=== PATIENT | male | born 1980 | race American Indian/Alaskan Native ===

== ENCOUNTER 2021-04-23 04:32 | Emergency (ER) | payer SELFPAY ==
[2021-04-23 04:39] VITALS: BP 108/45
[2021-04-23] MEDS ORDERED: LIDOCAINE-MPF (1%) 10 MG/1 ML VIAL 5 ML INFILTRATI ONE (04:53)
[2021-04-23] MEDS ORDERED: IBUPROFEN 600 MG TAB PO ONE (04:53)
--- NOTE | 2021-04-23 05:15 | Emergency Department Report ---
ED Extremity Problem HPI - General Chief complaint: Extremity Problem,Nontraumatic Stated complaint: LEFT INDEX FINGER INFECTION Source: patient Mode of arrival: Ambulatory Limitations: No Limitations - History of Present Illness Initial comments: Patient is a 41-year-old -Central [place] male with no past medical history presents to the ED with complaint of acute onset persistent painful swollen mild erythematous maculopapular rash on dorsal left index finger around a small puncture wound he sustained 1 week ago after a metallic object pierced through his dorsal left index finger. Patient states that he did not come to the hospital because he thought he was going to heal but in the last 2 days the pain and swelling of worsened. Patient denies dizziness, syncope, fever, chills, nausea and vomiting, numbness and tingling or weakness of left hand or left index finger. MD Complaint: extremity pain (left index finger pain and swelling), joint swelling (right index finger pain and swelling) -: Sudden, week(s) (1) Location: left, upper extremity (dorsal left index finger pain and swelling ) History of Same: No -: No myalgia, No arthralgia, No fever, No associated dyspnea, No associated chest pain Radiation: proximal Severity scale (0 -10): 8 Quality: aching, sharp Consistency: constant Improves with: nothing Worsens with: weight bearing, palpation Associated Symptoms: denies other symptoms, rash (Swollen, painful, erythematous maculopapular rash on dorsal left index finger following a puncture wound a week ago). denies: chest pain, shortness of breath, fever, myalgias, arthralgias - Related Data Previous Rx's Medication Instructions Recorded Last Taken Type Ibuprofen [Motrin] 800 mg PO Q8HR PRN #30 tablet 04/23/21 Unknown Rx Sulfamethoxazole/Trimethoprim 1 each PO Q12H #20 04/23/21 Unknown Rx [Bactrim DS TAB] Allergies Allergy/AdvReac Type Severity Reaction Status Date / Time No Known Allergies Allergy Unverified 04/23/21 04:36 ED Review of Systems ROS: Stated complaint: LEFT INDEX FINGER INFECTION Other details as noted in HPI Constitutional: denies: chills, fever Eyes: denies: eye pain, eye discharge, vision change ENT: denies: ear pain, throat pain Respiratory: denies: cough, shortness of breath, wheezing Cardiovascular: denies: chest pain, palpitations Endocrine: no symptoms reported Gastrointestinal: denies: abdominal pain, nausea, vomiting, diarrhea Genitourinary: denies: urgency, dysuria Musculoskeletal: arthralgia (Left index finger pain and swelling due to a mild erythematous maculopapular rash). denies: back pain, joint swelling Skin: rash (Mild erythematous maculopapular rash on dorsal left index finger with swelling and pain). denies: lesions Neurological: denies: headache, weakness, paresthesias Psychiatric: denies: anxiety, depression Hematological/Lymphatic: denies: easy bleeding, easy bruising ED Past Medical Hx - Medications Home Medications: Home Medications Medication Instructions Recorded Confirmed Last Taken Type Ibuprofen [Motrin] 800 mg PO Q8HR PRN #30 tablet 04/23/21 Unknown Rx Sulfamethoxazole/Trimethoprim 1 each PO Q12H #20 04/23/21 Unknown Rx [Bactrim DS TAB] ED Physical Exam - General Limitations: No Limitations General appearance: alert, in no apparent distress - Head Head exam: Present: atraumatic, normocephalic, normal inspection - Eye Eye exam: Present: normal appearance, PERRL, EOMI Pupils: Present: normal accommodation - ENT ENT exam: Present: normal exam, normal orophraynx, mucous membranes moist, TM's normal bilaterally, normal external ear exam - Neck Neck exam: Present: normal inspection, full ROM. Absent: tenderness - Respiratory Respiratory exam: Present: normal lung sounds bilaterally. Absent: respiratory distress, wheezes, rales, stridor, chest wall tenderness, accessory muscle use, decreased breath sounds, prolonged expiratory - Cardiovascular Cardiovascular Exam: Present: regular rate, normal rhythm, normal heart sounds. Absent: systolic murmur, diastolic murmur, rubs, gallop - GI/Abdominal GI/Abdominal exam: Present: soft, normal bowel sounds. Absent: distended, tenderness, guarding, rebound, hyperactive bowel sounds, hypoactive bowel sounds, organomegaly, bruit - Extremities Exam Extremities exam: Present: full ROM, tenderness (Palpable dorsal left index finger tenderness with swelling and fluctuance due to mild erythematous maculopapular rash around a closed puncture wound), normal capillary refill, joint swelling (Swollen, tender dorsal left index finger). Absent: pedal edema, calf tenderness - Back Exam Back exam: Present: normal inspection, full ROM. Absent: tenderness, CVA tenderness (R), CVA tenderness (L), muscle spasm, paraspinal tenderness, vertebral tenderness - Neurological Exam Neurological exam: Present: alert, oriented X3, CN II-XII intact, normal gait, reflexes normal - Psychiatric Psychiatric exam: Present: normal affect, normal mood - Skin Skin exam: Present: warm, dry, intact, rash (Swollen, mild erythematous maculopapular fluctuant rash on dorsal left index finger with localized tenderness and mild swelling), erythema ED Course Vital Signs 04/23/21 04:36 Temperature 98.5 F Pulse Rate 65 Respiratory 16 Rate Blood Pressure 108/45 [Right] O2 Sat by Pulse 99 Oximetry - I & D Left Dorsal Finger Type of Procedure: Simple Site: Dorsal left index finger Blade Size: 11 I & D Procedure: betadine prep, sterile drapes applied, sterile dressing applied, gauze wick placed Progress: Initially the area was cleaned with normal saline and Betadine solution to sterilize the area and there after lidocaine 1% solution was infiltrated around the closed wound. When anesthesia was fully achieved, the area was incised with size 11 scalpel blade and thick yellowish-green purulent discharge drained from the wound. The wound was then debrided extensively with normal saline and fluctuance broken. The wound was then partially packed with sterile 4 x 4 gauze and Kerlix. Patient tolerated the procedure well. Patient was thereafter discharged home on pain medication and antibiotics and advised to follow-up with his primary care physician in 7 to 10 days for reevaluation or return to the ED immediately if symptoms get worse. ED Medical Decision Making - Medical Decision Making This is a 41-year-old -[place] male with no past medical history presents to the ED with complaint of acute onset persistent painful swollen mild erythematous maculopapular rash on dorsal left index finger around a small puncture wound he sustained 1 week ago after a metallic object pierced through his dorsal left index finger. Patient states that he did not come to the hospital because he thought he was going to heal but in the last 2 days the pain and swelling of worsened. In the ED, patient is alert and oriented x3 and is not in any distress. Patient is hemodynamically stable. Patient was treated for pain in the ED and the dorsal left index finger fluctuant rash was incised and drained per protocol. Initially the area was cleaned with normal saline and Betadine solution to sterilize the area and there after lidocaine 1% solution was infiltrated around the closed wound. When anesthesia was fully achieved, the area was incised with size 11 scalpel blade and thick yellowish-green purule nt discharge drained from the wound. The wound was then debrided extensively with normal saline and fluctuance broken. The wound was then partially packed with sterile 4 x 4 gauze and Kerlix. Patient tolerated the procedure well. Patient was thereafter discharged home on pain medication and antibiotics and advised to follow-up with his primary care physician in 7 to 10 days for reevaluation or return to the ED immediately if symptoms get worse. - Differential Diagnosis finger cellulitis; infected finger puncture wound; sprain finger Critical care attestation.: If time is entered above; I have spent that time in minutes in the direct care of this critically ill patient, excluding procedure time. ED Disposition Clinical Impression: Cellulitis of left index finger Infected puncture wound of left index finger Qualifiers: Encounter type: initial encounter Qualified Code(s): S61.231A - Puncture wound without foreign body of left index finger without damage to nail, initial encounter; L08.9 - Local infection of the skin and subcutaneous tissue, unspecified Disposition: 01 HOME / SELF CARE / HOMELESS Is pt being admited?: No Does the pt Need Aspirin: No Condition: Stable Instructions: Puncture Wound, [id number], Cellulitis, Adult, [id number] Additional Instructions: Take medication with food, drink plenty of fluids and follow-up with your primary care physician in 7 to 10 days for reevaluation. Return to the ED immediately if symptoms get worse. Prescriptions: Sulfamethoxazole/Trimethoprim [Bactrim DS TAB] 1 each PO Q12H #20 Ibuprofen [Motrin] 800 mg PO Q8HR PRN #30 tablet PRN Reason: Pain , Severe (7-10) Referrals: [facility] [Provider Group] - 7-10 days Time of Disposition: 05:19 Print Language: FRISIAN
== END 2021-04-23 05:54 | disposition home or self-care (01) ==
LOC: ED 04:32
DX: S61.231A Puncture wound without foreign body of left index finger without damage to nail, initial encounter (principal); L03.012 Cellulitis of left finger; X58.XXXA Exposure to other specified factors, initial encounter; Y93.89 Activity, other specified; Y92.89 Other specified places as the place of occurrence of the external cause; Y99.8 Other external cause status
CPT/HCPCS: 99282